=== PATIENT | female | born 1990 | race Caucasian/White ===

== ENCOUNTER 2019-12-10 | Emergency (ER) | payer OTHER ==
[2019-12-10] MEDS ORDERED: BACTRIM DS1 TAB PO (12:51)
== END 2019-12-10 13:01 | disposition home or self-care (01) ==
DX: N75.0 Cyst of Bartholin's gland (principal)

== ENCOUNTER 2019-12-23 | Emergency (ER) | payer OTHER ==
[~2019-12-23] MED LIST: BACTRIM DS1 TAB PO
[2019-12-23] MEDS ORDERED: MOTRIN400 MG PO (21:45)
== END 2019-12-23 21:55 | disposition home or self-care (01) ==
DX: S40.011A Contusion of right shoulder, initial encounter (principal); S00.531A Contusion of lip, initial encounter; Y04.2XXA Assault by strike against or bumped into by another person, initial encounter; Y92.59 Other trade areas as the place of occurrence of the external cause

== ENCOUNTER 2020-02-04 20:39 | Emergency (ER) | payer OTHER ==
[~2020-02-04 20:39] MED LIST changes: +MOTRIN400 MG PO
[2020-02-04 21:39] LABS: URINE BILIRUBIN - DIPSTICK NEGATIVE (NEGATIVE); URINE BLOOD DIPSTICK SMALL (NEGATIVE); URINE COLOR YELLOW; URINE GLUCOSE - DIPSTICK NEGATIVE (NEGATIVE); URINE KETONE NEGATIVE (NEGATIVE); URINE LEUK ESTERASE TRACE (NEGATIVE); URINE NITRITE - DIPSTICK POSITIVE (Negative); URINE PH 6.5 (4.5-8.0); URINE PROTEIN - DIPSTICK NEGATIVE (NEG-TRACE); URINE UROBILINOGEN - DIPSTICK 0.2 E.U./dL (0.2)
[2020-02-04 21:41] LABS: HEMATOCRIT 39.7 % (37.0-47.0); HEMOGLOBIN 13.5 g/dl (12.0-16.0); IMMATURE GRANULOCYTES 0.5 % (0.0-5.0); MEAN CELL VOLUME 91.9 fL CALC (80.0-100.0); MEAN CORPUSCULAR HGB 31.3 pG CALC (26.0-32.0); NEUT# 4.92 thou/uL (2.00-7.15); RED BLOOD COUNT 4.32 mill/uL (4.20-5.60); RED CELL DISTRI WIDTH 13.2 % (11.5-15.5)
[2020-02-04 21:53] LABS: URINE SQUAMOUS EPITHELIAL CELL FEW EPI/hpf (0-FEW)
[2020-02-04 21:54] LABS: URINE BACTERIA MODERATE hpf
[2020-02-04 21:55] LABS: ALKALINE PHOSPHATASE 93 u/l (38-126); ANION GAP 11 (6-22 (CALC)); BILIRUBIN, TOTAL 0.4 mg/dL (0.0-1.4); BUN 19 mg/dL (7-17); BUN/CREATININE RATIO 26 (12-20 (CALC)); CARBON DIOXIDE 24 mmol/l (22-30); CHLORIDE 103 mmol/l (95-108); CREATININE 0.7 mg/dL (0.5-1.0); GFR > 60 ML/MIN (>=60 (CALC)); GFR FOR AFR.AMER. > 60 ML/MIN (>=60 (CALC)); POTASSIUM 3.9 mmol/l (3.5-5.1); SGOT/AST 52 u/l (14-36); SODIUM 135 mmol/l (137-146); TOTAL PROTEIN 7.1 g/dL (6.3-8.2)
[2020-02-04 22:06] LABS: MYOGLOBIN 11 ng/mL (0 - 62)
[2020-02-04] MEDS ORDERED: CIPROFLOXACN500 MG PO ×2 (23:03)
[2020-02-05 06:54] VITALS: BP 0/0
--- NOTE | 2020-02-07 10:36 | NUR ---
CALLED PT, WHO REPORTS SHE STILL HAS LOWER BACK PAIN. asked that results be sent to in [facility]. Faxed esbl e.coli urine culture results to [phone]
--- NOTE | 2020-02-09 10:01 | NUR ---
DR ALBERT FAX MACHINES HAVE BEEN DOWN. I SPOKE WITH NURSE TORIE AT HIS OFFICE AND VERBALLY GAVE RESULTS OF ESBL E COLI WITH SENSITIVITY TO AMIKACIN AND MEROPENEM
== END 2020-02-04 23:54 | disposition home or self-care (01) ==
LOC: ED 20:39
PROVIDERS: Emergency Medicine
DX: N39.0 Urinary tract infection, site not specified (principal); F17.210 Nicotine dependence, cigarettes, uncomplicated; B96.20 Unspecified Escherichia coli [E. coli] as the cause of diseases classified elsewhere; Z16.12 Extended spectrum beta lactamase (ESBL) resistance; Z72.89 Other problems related to lifestyle

== ENCOUNTER 2020-05-11 10:25 | Emergency (ER) | payer OTHER ==
[~2020-05-11] VITALS: Ht 165.1 cm; Wt 75.0 kg
[~2020-05-11 10:25] MED LIST changes: +CIPROFLOXACN500 MG PO
[2020-05-11 11:55] VITALS: BP 119/75
[2020-05-11 12:02] LABS: URINE BILIRUBIN - DIPSTICK NEGATIVE (NEGATIVE); URINE BLOOD DIPSTICK MODERATE (NEGATIVE); URINE COLOR YELLOW; URINE GLUCOSE - DIPSTICK NEGATIVE (NEGATIVE); URINE KETONE NEGATIVE (NEGATIVE); URINE LEUK ESTERASE NEGATIVE (NEGATIVE); URINE NITRITE - DIPSTICK NEGATIVE (Negative); URINE PH 5.5 (4.5-8.0); URINE PROTEIN - DIPSTICK NEGATIVE (NEG-TRACE); URINE SPECIFIC GRAVITY 1.025; URINE UROBILINOGEN - DIPSTICK 0.2 E.U./dL (0.2)
[2020-05-11] MEDS ORDERED: DOXYCYC MONO100 M2 PO ×2 (12:13→12:15)
== END 2020-05-11 12:37 | disposition home or self-care (01) ==
LOC: ED 10:25
PROVIDERS: Emergency Medicine
DX: Z20.2 Contact with and (suspected) exposure to infections with a predominantly sexual mode of transmission (principal); F17.200 Nicotine dependence, unspecified, uncomplicated